=== PATIENT | female | born 1955 | race Caucasian/White ===

== ENCOUNTER 2016-12-13 20:00 | Emergency (ER) | payer OTHER ==
[~2016-12-13] VITALS: Ht 172.7 cm; Wt 73.0 kg
[~2016-12-13 20:00] MED LIST: 24 HOUR ALLER15.8 ML BOTH NARES; ALPRAZOLAM0.25 M2 PO; APIDRA SOL100 UNIT/1 SC; ASPIR 8181 M1 PO; ATORVASTATIN CA80 MG PO; CALCIUM + VITA1 EAC2 PO; CORRECTOL5 M1 PO; DEX4 GLUCO15 GM/59 M PO; FLUOXETINE HCL20 MG PO; HYDROXYZINE HCL10 MG PO; HYDROXYZINE HCL25 MG PO; IRON325 MG PO; LANTUS 10100 UNITS/ SC; LEVO-T50 MCG PO; LITHIUM CARBON300 MG PO; METFORMIN HCL1000 MG PO; MOVE IT ALONG100 MG PO; MUCUS RELIEF200 MG PO; NEURONTIN600 MG PO; NICOTINE PATCH1 EAC2 TD; NITROFURANTOIN100 MG PO; NITROGLYCERIN0.4 MG SL; NOVOLOG 10100 UNITS/ SC; OMEPRAZOLE20 MG PO; OXAYDO5 MG PO; PERCOCET 5/31 TABLET PO; PROAIR HFA8.5 GM IH; PULMICORT FLE180 MCG IH; QUETIAPINE FUM100 MG PO; SYMBICORT60 INHALAT IH; TIMOLOL MALEATE5 M1 BOTH EYES; [UNRECOGNIZED DRUG - OTHER]
[2016-12-13 20:32] LABS: POINT-OF-CARE METER ID UU14100415
[2016-12-13] MEDS ORDERED: LORTAB 5-325 M1 EACH PO (20:54)
[2016-12-13 21:01] LABS: BASOPHIL COUNT 0.1 K/uL (0-0.1); EOSINOPHIL (%) 1.9 % (0-5); EOSINOPHIL COUNT 0.1 K/uL (0-0.3); HEMATOCRIT 41.4 % (36.0-46.0); IMMATURE GRANULOCYTE (%) 0.3 % (0.0-0.7); IMMATURE GRANULOCYTE COUNT 0.2 K/uL; LYMPHOCYTE COUNT 2.4 K/uL (1.0-2.8); MCH 27.9 PG (29.0-34.0); MCHC 35.3 G/DL (30.0-36.0); MCV 79.2 FL (83-99); MEAN PLAT.VOLUME 11.9 uM^3 (9.5-12.4); MONOCYTE (%) 6.4 % (3-12); MONOCYTE COUNT 0.5 K/uL (0-0.8); NEUTROPHIL (%) 58.3 % (45-76); NEUTROPHIL COUNT 4.4 K/uL (1.8-6.4); PLATELET COUNT 165 K/uL (156-360); RBC DIS.WIDTH-CV 13.7 % (11.8-14.6); RBC DIS.WIDTH-SD 38.8 % (39-53); RED BLOOD COUNT 5.23 M/uL (3.80-5.20); WHITE BLOOD COUNT 7.5 K/uL (4.1-10.2)
[2016-12-13 21:08] LABS: CHLORIDE 101 mEq/L (99-109); POTASSIUM 3.7 mEq/L (3.7-5.4); SODIUM 135 mEq/L (136-147)
[2016-12-13 21:10] LABS: GLUCOSE 287 mg/dL (70-99)
[2016-12-13 21:12] LABS: ANION GAP 12 MEQ/L (2-14); TOTAL BILIRUBIN 0.2 mg/dL (0.0-1.0)
[2016-12-13 21:14] LABS: ALKALINE PHOSPHATASE 109 IU/L (3-129); GFR ESTIMATE (CALCULATED) > 59 mL/min/
[2016-12-13 21:15] LABS: UREA NITROGEN (BUN) 14 mg/dL (9-23)
[2016-12-13 21:15] LABS: ADD MIUA? NO; BILIRUBIN NEGATIVE; BLOOD NEGATIVE; COLOR YELLOW ((YELLOW)); GLUCOSE (STRIP) >=1000; KETONES NEGATIVE; LEUKOCYTES NEGATIVE; NITRITE NEGATIVE; PROTEIN (STRIP) NEGATIVE; SPECIFIC GRAVITY 1.045 (1.000-1.030); UCUL ADDED? NO; UROBILINOGEN 0.2 MG/DL (0.2-1.0)
[2016-12-13 22:50] VITALS: BP 129/77
[2016-12-15 19:27] LABS: POINT-OF-CARE METER ID UU14100415
== END 2016-12-13 23:13 | disposition home or self-care (01) ==
LOC: EME → EDBD 20:00 → EME 23:13
PROVIDERS: Emergency Medicine
DX: E11.65 Type 2 diabetes mellitus with hyperglycemia (principal); S60.212A Contusion of left wrist, initial encounter; W18.39XA Other fall on same level, initial encounter; R10.9 Unspecified abdominal pain; R09.89 Other specified symptoms and signs involving the circulatory and respiratory systems; J44.9 Chronic obstructive pulmonary disease, unspecified; J45.909 Unspecified asthma, uncomplicated; Z79.4 Long term (current) use of insulin; Z79.82 Long term (current) use of aspirin; F17.200 Nicotine dependence, unspecified, uncomplicated
CPT/HCPCS: 71010; 73110; 80053; 81003; 82948; 85025; 99281; 99285; J7030

== ENCOUNTER 2017-03-03 19:15 | Emergency (ER) | payer OTHER ==
[~2017-03-03] VITALS: Ht 172.7 cm; Wt 74.1 kg
[~2017-03-03 19:15] MED LIST changes: +LORTAB 5-325 M1 EACH PO
[2017-03-03 20:23] LABS: ADD MIUA? YES; BILIRUBIN NEGATIVE; BLOOD LARGE; COLOR YELLOW ((YELLOW)); GLUCOSE (STRIP) >=500; KETONES NEGATIVE; LEUKOCYTES SMALL; NITRITE NEGATIVE; PROTEIN (STRIP) 30; SPECIFIC GRAVITY 1.016 (1.000-1.030); UROBILINOGEN 0.2 MG/DL (0.2-1.0)
[2017-03-03 20:38] LABS: CHLORIDE 103 mEq/L (99-109); POTASSIUM 4.4 mEq/L (3.7-5.4); SODIUM 135 mEq/L (136-147)
[2017-03-03 20:41] LABS: GLUCOSE 234 mg/dL (70-99)
[2017-03-03 20:42] LABS: ANION GAP 10 MEQ/L (2-14)
[2017-03-03 20:43] LABS: TOTAL BILIRUBIN 0.2 mg/dL (0.0-1.0)
[2017-03-03 20:44] LABS: ALKALINE PHOSPHATASE 83 IU/L (3-129); GFR ESTIMATE (CALCULATED) > 59 mL/min/
[2017-03-03 20:45] LABS: UREA NITROGEN (BUN) 18 mg/dL (9-23)
[2017-03-03 21:01] LABS: BACTERIA NONE SEEN /HPF; EPITHELIAL CELLS RARE /HPF; MUCUS TRACE /LPF; RED BLOOD CELLS TNTC /HPF (0-5); UCUL ADDED? NO
[2017-03-03 21:05] LABS: EOSINOPHIL (%) 2.6 % (0-5); EOSINOPHIL COUNT 0.2 K/uL (0-0.3); HEMATOCRIT 38.9 % (36.0-46.0); IMMATURE GRANULOCYTE (%) 0.4 % (0.0-0.7); INSTRUMENT ABS NEUTROPHIL CT 4.9 K/uL; LYMPHOCYTE COUNT 2.3 K/uL (1.0-2.8); MCH 27.5 PG (29.0-34.0); MCHC 33.2 G/DL (30.0-36.0); MCV 82.9 FL (83-99); MEAN PLAT.VOLUME 11.9 uM^3 (9.5-12.4); MONOCYTE (%) 6.6 % (3-12); MONOCYTE COUNT 0.5 K/uL (0-0.8); NEUTROPHIL (%) 61.1 % (45-76); NEUTROPHIL COUNT 4.9 K/uL (1.8-6.4); PLATELET COUNT 178 K/uL (156-360); RBC DIS.WIDTH-CV 13.1 % (11.8-14.6); RBC DIS.WIDTH-SD 39.4 % (39-53); RED BLOOD COUNT 4.69 M/uL (3.80-5.20); WHITE BLOOD COUNT 7.9 K/uL (4.1-10.2)
[2017-03-03] MEDS ORDERED: MOTRIN600 MG PO (21:59)
[2017-03-03] MEDS ORDERED: PERCOCET 5/31 TABLET PO (21:59)
[2017-03-03] MEDS ORDERED: ZOFRAN ODT4 MG PO (21:59)
[2017-03-03 22:38] VITALS: BP 116/74
== END 2017-03-03 22:42 | disposition home or self-care (01) ==
LOC: EME 19:15
PROVIDERS: Emergency Medicine
DX: R10.9 Unspecified abdominal pain (principal); R31.9 Hematuria, unspecified; F17.200 Nicotine dependence, unspecified, uncomplicated; Z88.6 Allergy status to analgesic agent; E11.9 Type 2 diabetes mellitus without complications; J44.9 Chronic obstructive pulmonary disease, unspecified; Z87.442 Personal history of urinary calculi
CPT/HCPCS: 74176; 80053; 81003; 85025; 87086; 99281; 99284; J1885; J2270; J2405; J2765; J3010; J7030